=== PATIENT | female | born 1970 | race Caucasian/White ===

== ENCOUNTER 2020-02-28 17:40 | Outpatient (CLI) | payer BC, SELFPAY ==
--- NOTE | ~2020-02-28 | XR_ITS ---
EXAMINATION: XR chest 2V EXAM DATE: 02/28/2020 17:59 INDICATION: Cough. TECHNIQUE: Frontal and lateral projections of the chest obtained and reviewed. Comparison is made to prior examination from 03/13/2019. FINDINGS: Moderate hyperinflation. The lungs are clear. There are no pleural effusions. The cardio mediastinal silhouette is within normal limits. There is no pneumothorax suspected. The bones and s oft tissues are unremarkable. There are cholecystectomy clips. IMPRESSION: 1. No acute cardiopulmonary findings. 2. Hyperinflation. Reviewed, dictated and finalized at location A.
== END 2020-02-28 17:41 | disposition home or self-care (01) ==
LOC: ANHIMG 17:45
PROVIDERS: PCP Family Medicine; Visit Provider Family Medicine
DX: R05 Cough (principal); R91.8 Other nonspecific abnormal finding of lung field
CPT/HCPCS: 71046

== ENCOUNTER → 2021-01-18 13:11 | Outpatient (CLI) | payer BC, SELFPAY ==
--- NOTE | ~2021-01-18 | MM_ITS ---
EXAMINATION: MM screening mike BI w lucia HISTORY: Screening TECHNIQUE: Craniocaudal and mediolateral oblique 3-D tomosynthesis images were obtained and synthetic 2-D images were generated. CAD analysis was submitted and interpreted. COMPARISON: Comparison to multiple prior studies sequentially, with oldest reviewed study dated 03/15. BREAST PARENCHYMAL COMPOSITION: The breasts are heterogenously dense, which may obscure small masses FINDINGS: There is no evidence of suspicious mass, calcification, or architectural distortion to sugg est malignancy in either breast. There has been no suspicious interval change. IMPRESSION: 1. No mammographic evidence of malignancy. 2. Recommend routine screening mammography in one year. BI-RADS Category 1: Negative Reviewed, dictated and finalized at location A.
== END ==
PROVIDERS: PCP Family Medicine; Visit Provider Family Medicine
DX: Z12.31 Encounter for screening mammogram for malignant neoplasm of breast (principal)
CPT/HCPCS: 77063; 77067

== ENCOUNTER 2021-07-26 10:50 | Outpatient (CLI) | payer OTHER, SELFPAY ==
--- NOTE | ~2021-07-26 | US_ITS ---
EXAMINATION: US abdomen complete DATE: 07/26/2021 11:25 INDICATION: Abnormal levels of other serum enzymes. TECHNIQUE: Multiple grayscale and Doppler ultrasound images of the abdomen were obtained. COMPARISON: Ultrasound abdomen 03/15/2013 FINDINGS: The visualized portions of the head, body, and tail of the pancreas are normal. The liver i s normal without focal lesion. No liver surface nodularity. There is normal flow in main portal vein. The gallbladder is absent. The common duct is normal and measures 6 mm. The kidneys are normal in si ze. The spleen is normal in size. Abdominal aorta is normal in caliber. Inferior vena cava is normal. IMPRESSION: 1. No etiology for abnormal liver function tests. Reviewed, dictated and finalized at location A. UNTS RECEIVABLE ADMINISTRATOR
== END 2021-07-26 10:51 | disposition home or self-care (01) ==
PROVIDERS: PCP Family Medicine; Visit Provider Family Medicine
DX: R74.8 Abnormal levels of other serum enzymes (principal)
CPT/HCPCS: 76700

== ENCOUNTER 2021-08-21 14:27 | Outpatient (CLI) | payer OTHER, SELFPAY ==
--- NOTE | ~2021-08-21 | XR_ITS ---
XR hand RT min 3V DATE: 08/21/2021 14:42 INDICATION: Right hand joint pain TECHNIQUE: 3 views COMPARISON: None FINDINGS: There is joint space narrowing and spurring at the distal interphalangeal joint of the four th digit consistent with osteoarthritis. No fracture or dislocation, periosteal reaction or bone destruction or erosive change or chondrocalci nosis is detected. 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 ARIAL TRAINEE
== END 2021-08-21 14:28 | disposition home or self-care (01) ==
LOC: ANHIMG 14:32
PROVIDERS: PCP Family Medicine; Visit Provider Family Medicine
DX: R53.81 Other malaise (principal); M19.041 Primary osteoarthritis, right hand
CPT/HCPCS: 73130

== ENCOUNTER 2021-10-23 07:54 | Outpatient (CLI) | payer OTHER, SELFPAY ==
--- NOTE | ~2021-10-23 | CT_ITS ---
EXAMINATION:CT lung screening DATE: 10/23/2021 08:56 INDICATION: Personal history of nicotine dependence. Smoker who quit 10 years ago with 40 pack year h istory. TECHNIQUE: Computed tomography (CT) of the chest was performed without intravenous contrast. Automate d exposure control and iterative reconstruction technique were employed. The dose-length product (DLP ) was 61.84 mGy-cm. COMPARISON: None. FINDINGS: There is mild emphysema. There is minimal atelectasis bilaterally. There is a 3 mm nodule a t left lung apex. No pleural effusion. The heart size is normal. There are coronary artery calcificat ions. No pericardial effusion. There are changes of cholecystectomy. There is mild thoracic spondylos is. IMPRESSION: 1. Lung-RADS category 2: Benign appearance or behavior. Continue annual screening with noncontrast lo w-dose chest CT in 12 months. Reviewed, dictated and finalized at location A. IMPRESSION: 1. Lung-RADS category 2: Benign appearance or behavior. Continue annual screeni ng with noncontrast low-dose chest CT in 12 months.
--- NOTE | 2021-10-23 12:39 | WPDPFTINT ---
PFT Procedure Performed PFT Procedure Performed Spirometry with Pre/Post Bronchodilator Plethysmography (Lung Vol) Diffusing Cap (DLCO) Flow Vol Loop PFT Interpretation This is a pulmonary function test with pre and post-bronchodilator spirometry, plethysmography and diffusing capacity. The test was performed and results interpreted in accordance with the 2019 and 2005 ATS/ERS Task Force guidelines respectively using the Global Lung Function Initiative-2012 reference equations. Patient demonstrated good effort and cooperation. Reproducibility criteria were met. The quality of the pre bronchodilator spirometry maneuver was Grade A and post bronchodilator spirometry maneuver was Grade A. Findings: Spirometry: There is decreased maximal expiratory airflow at low lung volumes with a mildly concave expiratory flow tracing. The contour the inspiratory flow tracing is normal. The pre bronchodilator FVC is 2.70 L, 88% predicted. The pre bronchodilator FEV1 is 1.90 L, 77% predicted. The FEV1: FVC ratio 71%. The post bronchodilator FVC is 2.66 L, representing 1% decrease. The post bronchodilator FEV1 is 1.98 L, representing a 4% increase. The post bronchodilator FEV1: FVC ratio 74%. Plethysmography: Total lung capacity is 4.36 L, 95% predicted. The functional residual capacity is 2.69 L, 105% predicted. The residual volume is 1.66 L, 99% predicted. Diffusing capacity: The diffusing capacity unadjusted for hemoglobin and carboxyhemoglobin is 14.7, 69% predicted. The diffusing capacity adjusted for alveolar volume is 4.45, 95% predicted. Impression: There is a mild obstructive abnormality with a normal FEV1 and without significant improvement after inhaling a single dose of albuterol. The lung volumes are normal. The diffusing capacity unadjusted for hemoglobin and carboxyhemoglobin is mildly decreased and normalizes when adjusted for alveolar volume. There are no prior studies for comparison
== END 2021-10-23 07:55 | disposition home or self-care (01) ==
LOC: ANHPFT 07:55
PROVIDERS: PCP Family Medicine; Visit Provider Internal Medicine Pulmonary Disease
DX: Z12.2 Encounter for screening for malignant neoplasm of respiratory organs (principal); Z87.891 Personal history of nicotine dependence; R06.02 Shortness of breath
CPT/HCPCS: 71271; 94060; 94726; 94729

== ENCOUNTER 2021-11-15 08:20 | Outpatient (CLI) | payer OTHER, SELFPAY ==
[2021-11-15 09:10] LABS: Prothrombin Time 12.5 Seconds (11.1-14.7)
[2021-11-15 09:11] LABS: Partial Thromboplastin Time 32.3 SECONDS (22.3-36.8)
== END 2021-11-15 08:21 | disposition home or self-care (01) ==
LOC: ANHSURGERY 08:24
PROVIDERS: Anesthesiology; PCP Family Medicine; Visit Provider Urology
DX: R32 Unspecified urinary incontinence (principal); B19.20 Unspecified viral hepatitis C without hepatic coma; Z01.818 Encounter for other preprocedural examination
CPT/HCPCS: 36415; 85610; 85730; 87077; 87086; 87088

== ENCOUNTER 2021-11-22 00:58 | Day surgery (SDC) | payer OTHER, SELFPAY ==
[2021-11-11 15:10] VITALS: BMI 24.5
--- NOTE | 2021-11-11 15:40 | PC.NURSE ---
Report to the Outpatient Waiting Room, entrance under the green pavilion located off [facility], at time 7:00 AM on date 11/22/21 . OR Time: __9:00AM . IF YOUR SURGERY TIME IS ADJUSTED, WE WILL CONTACT YOU ON THURSDAY AFTERNOON REGARDING ANY TIME CHANGES!!! - You and your visitor will be asked a series of questions to screen for COVID 19 for your protection. - A mask is required within the hospital. Preoperative COVID Testing Requirements: No COVID Test needed Patients may have clear liquids (water, carbonated beverages, clear teas, apple juice) until 3 hours prior to surgery with a maximum of 20 ounces. YOU MAY HAVE CLEAR LIQUIDS UNTIL 6:00 AM ON THE MORNING OF SURGERY - No food from midnight until time of surgery Take the following medications with a SIP of water the morning of surgery: __SOFOSBUVIR; INHALER NEEDED Medications to discontinue per physician JOSUE--PLEASE CALL DR. VICENTE'S OFFICE REGARDING WHEN TO STOP BEFORE SURGERY Date to take last dose Please no make-up, nail swedish, hairspray, perfume, deodorant, or body powder the day of surgery. No jewelry (including any body piercings) or valuables the day of surgery, leave them at home. Please take a shower or bath the night before, or the morning of, surgery with an antibacterial soap. Wear comfortable, loose fitting clothing. - Jewelry must be removed prior to entering the operating room. Rings and piercings that are not removed may be cut off. - The hospital will not accept responsibility for valuables. - Please leave all valuables, including medications, at home the day of surgery. If you are going home after surgery, a licensed local flatbed driver must drive you home. - NO public transportation without another adult. - We recommend that an adult stay with you for 24 hours following discharge. - We also recommend that you do not drive, make important decision, drink alcoholic beverages, or take any drugs that were not prescribed by your health care provider for at least 24 hours after your discharge time. For Pediatric surgeries, we recommend two adults accompany the child home (only one inside the building at this time). One visitor will be allowed to accompany the patient into the hospital. Patients visitor will be instructed to remain with patient at all times or leave the building. We will allow the visitor to come back to the postoperative area when patient is ready. Follow any additional instructions given to you from your surgeon. Telephone instructions given to __TERRI and asked if any additional questions and then verbalized understanding. Patient advised to call surgeon office or pre surgery nurse liaison [phone] if any additional questions.
--- NOTE | 2021-11-17 20:37 | PM.IMHP ---
H&P: HPI History of Present Illness Date/Time: 11/17/21 20:37 51 yo with ANJEL Chief Complaint: ANJEL Review of Systems Review of Systems: All systems reviewed & are unremarkable except as noted in HPI and below PMFSH Past Medical History Medical History COPD (chronic obstructive pulmonary disease) Seasonal allergic rhinitis Tobacco use Surgical History Surgical History H/O tubal ligation History of cholecystectomy Family History Family History Sibling Family history of malignant neoplasm of breast in first degree relative, Onset Age: 47 Family history of elevated blood lipids Mother Family history of pancreatic disease Family history of lung cancer, Onset Age: 70 Other Family history of malignant neoplasm of breast Social History Social History Social History: Years smoked: 20 Smoking status: Former smoker Tobacco type: e-cigarettes/vaping Second hand tobacco smoke exposure: Yes Smoking end date: 07/20/10 Additional smoking assessment comments: Pt quit vaping Alcohol intake: current Drinks per week: 4 Substance use: former Substance use type: marijuana Other substance usage details: STOPPED CIGARETTES IN 2009 CURRENTLY USES E CIGS Last use: 2009 Gender identity (if verbalized by the patient): Female Sexual Orientation (if Verbalized by the Patient): Straight or Heterosexual Spiritual care concerns: No Meds Home Medications and Allergies Home Medications Medication Instructions Recorded Confirmed Type albuterol sulfate 90 mcg/actuation 1 inhalation INHALATION Q4-6H PRN 04/03/20 11/11/21 Rx breath activated powder inhaler #1 each sofosbuvir 400 mg-velpatasvir 100 1 tablet PO DAILY 84 Days #84 10/21/21 11/11/21 Rx mg tablet tablet celecoxib 200 mg PO DAILY 11/11/21 11/11/21 History Allergies Allergy/AdvReac Type Severity Reaction Status Date / Time meperidine Allergy Intermediate Itching Verified 10/01/21 12:51 propoxyphene Allergy Intermediate Itching Verified 11/11/21 15:39 MEPERIDINE HCL Allergy Intermediate Hives Uncoded 11/11/21 15:39 PROPOXYPHENE NAPSYLATE Allergy Intermediate Hives Uncoded 11/11/21 15:39 Exam Narrative: NAD normal brething + urethral mobility Assessment and Plan Assessment and plan (1) ANJEL (stress urinary incontinence, female): Code(s): N39.3 - Stress incontinence (female) (male) Status: Acute Assessment and Plan: urethral sling
--- NOTE | 2021-11-21 12:55 | WPDANESEPPF ---
Anes - Initial Pre Proc Eval Procedure: Operation Date: 11/22/21 09:00 Proposed Procedures p Urethral Sling - Thompson Vinson MD Date/Time: 11/21/21 12:55 Surgeon: Thompson Vinson MD Pre Op Diagnosis: stress incontinence Patient Data Age: 51 Gender: F Height: 1.55 m Weight: 59 kg Allergies Allergy/AdvReac Type Severity Reaction Status Date / Time meperidine Allergy Intermediate Itching Verified 11/22/21 07:13 propoxyphene Allergy Intermediate Itching Verified 11/22/21 07:13 MEPERIDINE HCL Allergy Intermediate Hives Uncoded 11/22/21 07:13 PROPOXYPHENE NAPSYLATE Allergy Intermediate Hives Uncoded 11/22/21 07:13 Home Medications Medication Instructions Recorded Confirmed Type albuterol sulfate 90 mcg/actuation 1 inhalation INHALATION Q4-6H PRN 04/03/20 11/22/21 Rx breath activated powder inhaler #1 each celecoxib 200 mg PO DAILY 11/11/21 11/22/21 History sofosbuvir 400 mg-velpatasvir 100 1 tablet PO DAILY 84 Days #84 11/20/21 Rx mg tablet tablet Patient hx anesthesia problems: post op nausea/vomiting Family hx anesthesia problems: none Results Review: All pre-operative results and documents have been reviewed as part of the pre-operative evaluation. [facility] Past Medical History Medical History COPD (chronic obstructive pulmonary disease) Hepatitis C PONV (postoperative nausea and vomiting) Seasonal allergic rhinitis Tobacco use Surgical History Surgical History H/O tubal ligation History of cholecystectomy Family History Family History Sibling Family history of malignant neoplasm of breast in first degree relative, Onset Age: 47 Family history of elevated blood lipids Mother Family history of pancreatic disease Family history of lung cancer, Onset Age: 70 Other Family history of malignant neoplasm of breast Social History Social History Social History: Years smoked: 20 Smoking status: Former smoker Tobacco type: e-cigarettes/vaping Second hand tobacco smoke exposure: Yes Smoking end date: 07/20/10 Additional smoking assessment comments: Pt quit vaping Alcohol intake: current Drinks per week: 4 Substance use: former Substance use type: marijuana Other substance usage details: STOPPED CIGARETTES IN 2009 CURRENTLY USES E CIGS Last use: 2009 Living arrangements: with family Gender identity (if verbalized by the patient): Female Sexual Orientation (if Verbalized by the Patient): Straight or Heterosexual Spiritual care concerns: No Anes - Eval Final PreProcedure Day of Procedure 11/21/21 12:55 Patient weight: normal Heart: regular rate and rhythm Lungs: clear to auscultation and normal air movement Airway: Mallampati scale class II Neurological: alert and oriented Last oral intake: >/= 8 hours ASA classification: III Emergent: no Anesthetic plan: proceed Anesthesia type and monitoring: general GIVS and standard monitoring Results Review: All pre-operative results and documents have been reviewed as part of the pre-operative evaluation. Informed Consent: The patient's anesthetic plan and its attendant risks and benefits were discussed with the patient/family/POA. Questions were solicited and answers provided to the satisfaction of the patient/family/POA.
--- NOTE | 2021-11-22 07:14 | WPDHPUPDATE1 ---
History and Physical Update Update Date/Time: 11/22/21 07:14 History and Physical has been reviewed, including an updated exam of the patient. There are NO changes in the patient's condition. Risks, benefits, and alternatives have been discussed and questions answered. Patient agrees to proceed with procedure.
[2021-11-22 07:26] VITALS: BP 106/81; PULSE 70; RESP 20; TEMP 36.7; O2SAT 100; BMI 25.0
[2021-11-22] MEDS: LACTATED RINGERS 1,000 ML 30 ML IV CONT (07:38)
[2021-11-22] MEDS: LIDO 1%/EPINEPHRINE/PF 1:200,000 30 ML VIAL 20 ML XX (08:44)
[2021-11-22] MEDS: ceFAZolin 2 GM/D5W 50 ML 2 GM/50 ML BAG IVPB (08:46)
[2021-11-22] MEDS: KETOROLAC 30 MG/ML VIAL (*BKC) IV PUSH (08:54)
--- NOTE | 2021-11-22 09:15 | W.PM.PROC2 ---
Procedure Note - Detailed Date of Procedure 11/22/21 Pre-op Diagnosis stress incontinence Post-op Diagnosis Same Procedure Performed mid urethral sling cystoscopy Surgeon Thompson Vinson MD Indications This is a female with confirm stress urinary incontinence. She desires surgical correction. She understands the risks of bleeding, infection, injury to the urinary tract, vaginal mesh extrusion, urinary tract mesh erosion, obstructive voiding requiring a secondary procedure, hip and leg pain, dyspareunia, inability to improve overactive bladder symptoms. She agrees to proceed. Description of Procedure She was correctly identified. Informed consent obtained. She was brought the operating room. She was given appropriate anesthesia. She was given appropriate perioperative antibiotics. A time-out performed. I marked out the site of the inner thigh incisions. I anesthetized the skin and made those incisions. I anesthetized the anterior vaginal wall over the mid urethra. I made a 1 cm incision. I dissected out laterally taking great care not to injure the refilled vaginal wall. I passed the helical trocars. First on the left. Then on the right. I did this from the thigh incision towards the vaginal incision. The sling was connected to the trocars and brought out through the thigh incision. I tensioned the sling appropriately. I cut and the plastic sheaths. I then closed the incision with 2 0 Vicryl. On cystoscopy there is no tumors or surgical artifact. There was no surgical artifact in the urethra. I cut the excess sling material. Close incisions with glue. She was awakened and transferred to the PACU in stable condition. Implants Urethral sling Drains No Packing No Pathology None sent Complications No immediate complications Condition Stable Disposition PACU
[2021-11-22 09:18] VITALS: BP 98/47; PULSE 78; RESP 16; O2SAT 96
[2021-11-22 09:48] VITALS: BP 123/55; PULSE 73; RESP 16
--- NOTE | 2021-11-22 19:41 | SUR.PHASEII ---
delay for discharge due to pain and muscle spasm control. After pain medications pt said her pain was tolerable and she was good to go home.
== END 2021-11-22 10:15 | disposition home or self-care (01) ==
PROVIDERS: PCP Family Medicine; Visit Provider Urology
PROC: (CPT 57288; principal; 2021-11-22 09:00)
DX: N39.3 Stress incontinence (female) (male) (principal); Z79.51 Long term (current) use of inhaled steroids; J44.9 Chronic obstructive pulmonary disease, unspecified; B19.20 Unspecified viral hepatitis C without hepatic coma; Z87.891 Personal history of nicotine dependence; F12.90 Cannabis use, unspecified, uncomplicated
CPT/HCPCS: 57288; 36415; 85610; 85730; 87077; 87086; 87088; A9270; C1771; J0690; J1100; J1885; J2250; J2405; J2704; J3010; J7120

== ENCOUNTER 2022-02-03 15:47 | Outpatient (CLI) | payer OTHER, SELFPAY ==
[2022-02-03 16:02] LABS: Hematocrit 40.7 % (37.0-47.0); Hemoglobin 14.1 g/dL (12.0-15.0); Mean Corpuscular HGB Conc 34.6 g/dl (32-36); Mean Corpuscular Hemoglobin 29.3 pg (26-34); Mean Corpuscular Volume 84.4 fl (80-100); Mean Platelet Volume 10.4 fl (7.4-10.4); Platelet Count Result 191 k/mm3 (150-375); Red Blood Count 4.82 M/mm3 (4.2-5.4); Red Cell Distribution Width 11.6 % (11.5-14.5); White Blood Count 8.2 K/mm3 (4.5-10.0)
[2022-02-03 16:13] LABS: Alanine Aminotransferase 15 U/L (6-35); Albumin Level 4.4 g/dL (3.5-5.1); Alkaline Phosphatase 64 U/L (38-126); Anion Gap 6 mmol/L (8-16); Aspartate Amino Transferase 26 U/L (14-36); Bilirubin,Total 0.6 mg/dL (0.2-1.3); Blood Urea Nitrogen 12 mg/dL (7-17); Calcium 9.1 mg/dL (8.4-10.2); Carbon Dioxide 25 mmol/L (22-30); Chloride 105 mmol/L (98-107); Estimated Glomerular Filt Rate > 60; Glucose 97 mg/dL (65-110); Potassium 3.9 mmol/L (3.4-5.0); Sodium 136 mmol/L (137-145)
[2022-02-06 16:22] LABS: Hepatitis C RNA, Quant PCR <15 IU/mL
== END 2022-02-03 15:48 | disposition home or self-care (01) ==
LOC: ANHLAB 15:50
PROVIDERS: PCP Family Medicine; Visit Provider Nurse Practitioner Family
DX: B19.20 Unspecified viral hepatitis C without hepatic coma (principal)
CPT/HCPCS: 36415; 80053; 85027; 87522

== ENCOUNTER 2022-04-11 08:38 | Outpatient (CLI) | payer OTHER, SELFPAY ==
--- NOTE | ~2022-04-11 | XR_ITS ---
XR lumbar spine 2-3V DATE: 04/11/2022 09:02 INDICATION: Low back pain after picking up a heavy object TECHNIQUE: AP, lateral, coned lateral lumbosacral views COMPARISON: 07/17/2019 lumbar spine FINDINGS: Normal alignment of the lumbar spine. No fracture or bone destruction or spondylolisthesis. The lumbar pedicles are intact. There is mild degenerative spurring of the lower thoracic and lumbar spine. Lumbar and lumbosacral in terspaces appear well preserved. The sacroiliac joints are intact. Status post cholecystectomy. IMPRESSION: Mild degenerative spurring of the lower thoracic and lumbar spine; no evidence of fractur e Status post cholecystectomy Reviewed, dictated and finalized at location D. IMPRESSION: Mild degenerative spurring of the lower thoracic and lumbar spine; no evidence of fracture Status post cholecystectomy
== END 2022-04-11 08:39 | disposition home or self-care (01) ==
PROVIDERS: PCP Family Medicine; Visit Provider Physician Assistant
DX: M54.50 Low back pain, unspecified (principal); M46.04 Spinal enthesopathy, thoracic region; M46.06 Spinal enthesopathy, lumbar region; Z90.49 Acquired absence of other specified parts of digestive tract
CPT/HCPCS: 72100

== ENCOUNTER 2022-10-24 09:30 | Outpatient (CLI) | payer BC, SELFPAY ==
--- NOTE | ~2022-10-24 | CT_ITS ---
EXAMINATION: CT lung screening DATE: 10/24/2022 09:59 INDICATION: Personal history of nicotine dependence, current smoker with 20 pack year history TECHNIQUE: Computed tomography (CT) of the chest was performed without intravenous contrast. The dose -length product (DLP) was 68.18 mGy-cm. Automated exposure control and iterative reconstruction techn Telestreamue were employed. COMPARISON: 10/23/2021 FINDINGS: There is mild emphysema. The previously described nodule of the left lung apex is no longer evident. The lungs are free of acute opacities. No pleural effusion or pneumothorax. No pathological ly enlarged thoracic lymph nodes are identified. The heart size is normal. There is calcified coronar y artery atherosclerosis. The gallbladder is surgically absent. There is mild enlargement of the comm on bile duct and central intrahepatic ducts which is likely due to post cholecystectomy state. There is mild thoracic spondylosis. IMPRESSION: 1. Lung-RADS category 1: Negative. Continue annual screening with noncontrast low-dose chest CT in 12 months. Reviewed, dictated and finalized at location B. IMPRESSION: 1. Lung-RADS category 1: Negative. Continue annual screening with noncontrast l ow-dose chest CT in 12 months.
== END 2022-10-24 09:31 | disposition home or self-care (01) ==
PROVIDERS: PCP Family Medicine; Visit Provider Physician Assistant
DX: Z12.2 Encounter for screening for malignant neoplasm of respiratory organs (principal); F17.210 Nicotine dependence, cigarettes, uncomplicated
CPT/HCPCS: 71271

== ENCOUNTER 2023-07-28 08:39 | Outpatient (CLI) | payer BC, SELFPAY ==
--- NOTE | 2023-07-28 09:45 | NEURO_ITS ---
Impression: # Non-diabetic complains of numbness of hands. # Bilateral Carpal Tunnel Syndrome, left more than right. # Needle/EMG exam mildly neurogenic in left APB. Nerve Conduction Studies Anti Sensory Summary Table Stim Site NR Peak (ms) P-T Amp (?V) Site1 Site2 Delta-P (ms) Dist (cm) Vladimir (m/s) Left Median Anti Sensory (2-3nd Digit) Wrist 4.6 43.6 Wrist 2-3nd Digit 4.6 14.0 30 Wrist 4.4 36.5 Wrist 2-3nd Digit 4.6 14.0 30 Right Median Anti Sensory (2-3nd Digit) Wrist 3.5 34.9 Wrist 2-3nd Digit 3.5 14.0 40 Wrist 4.6 68.9 Wrist 2-3nd Digit 3.5 14.0 40 Left Radial Anti Sensory (Base 1st Digit) Wrist 2.0 12.2 Wrist Base 1st Digit 2.0 0.0 Right Radial Anti Sensory (Base 1st Digit) Wrist 2.4 23.4 Wrist Base 1st Digit 2.4 0.0 Left Ulnar Anti Sensory (5th Digit) Wrist 2.3 46.8 Wrist 5th Digit 2.3 14.0 61 Right Ulnar Anti Sensory (5th Digit) Wrist 2.3 66.1 Wrist 5th Digit 2.3 14.0 61 Motor Summary Table Stim Site NR Onset (ms) O-P Amp (mV) Site1 Site2 Delta-0 (ms) Dist (cm) Vladimir (m/s) Left Median Motor (Abd Poll Brev) Wrist 4.0 4.8 Elbow Wrist 4.4 26.0 59 Elbow 8.4 3.9 Right Median Motor (Abd Poll Brev) Wrist 3.4 4.0 Elbow Wrist 4.5 25.0 56 Elbow 7.9 3.0 Left Ulnar Motor (Abd Dig Minimi) Wrist 2.4 7.4 A Elbow Wrist 4.5 26.0 58 A Elbow 6.9 6.7 Right Ulnar Motor (Abd Dig Minimi) Wrist 2.2 7.6 A Elbow Wrist 4.4 26.0 59 A Elbow 6.6 6.7 F Wave Studies NR F-Lat (ms) L-R F-Lat (ms) Left Median (Mrkrs) (Abd Poll Brev) 23.80 1.17 Right Median (Mrkrs) (Abd Poll Brev) 24.97 1.17 Left Ulnar (Mrkrs) (Abd Dig Min) 23.54 0.00 Right Ulnar (Mrkrs) (Abd Dig Min) 23.54 0.00 EMG Side Muscle Nerve Root Ins Act Fibs Amp Dur Recrt Comment Right 1stDorInt Ulnar C8-T1 Nml Nml Nml Nml Nml Right Ext Indicis Radial (Post Int) C7-8 Nml Nml Nml Nml Nml Right Ext Digitorum Radial (Post Int) C7-8 Nml Nml Nml Nml Nml Right BrachioRad Radial C5-6 Nml Nml Nml Nml Nml Right PronatorTeres Median C6-7 Nml Nml Nml Nml Nml Right Abd Poll Brev Median C8-T1 Nml Nml Nml Nml Nml Left 1stDorInt Ulnar C8-T1 Nml Nml Nml Nml Nml Left Ext Indicis Radial (Post Int) C7-8 Nml Nml Nml Nml Nml Left Ext Digitorum Radial (Post Int) C7-8 Nml Nml Nml Nml Nml Left BrachioRad Radial C5-6 Nml Nml Nml Nml Nml Left PronatorTeres Median C6-7 Nml Nml Nml Nml Nml Left Abd Poll Brev Median C8-T1 Nml Nml Nml >12ms Reduced MTDD
== END 2023-07-28 08:40 | disposition home or self-care (01) ==
LOC: ANHNEURO 08:44
PROVIDERS: PCP Family Medicine; Visit Provider Physician Assistant
DX: G56.03 Carpal tunnel syndrome, bilateral upper limbs (principal)
CPT/HCPCS: 95886; 95911

== ENCOUNTER 2023-09-10 00:53 | Day surgery (SDC) | payer BC, SELFPAY ==
[2023-09-02 12:14] VITALS: BMI 21.5
--- NOTE | 2023-09-02 12:20 | PC.NURSE ---
Report to the Outpatient Waiting Room, entrance under the green pavilion located off [facility], at time 0830 on date 09/10/23. Planned Procedure Time: 1030. Time changes happen often and if your time is changed the preop area will call you the afternoon before. - You and your visitor will be asked to self-screen and do not enter if you have any COVID symptoms. - A mask is optional within the hospital at this time. Patients may have clear liquids (water, carbonated beverages, clear teas, apple juice) until 8 hours prior to surgery with a maximum of 20 ounces. - No food from midnight until time of surgery Take the following medications with a SIP of water the morning of surgery: NONE DO NOT STOP ANY OF YOUR OTHER PRESCRIPTION MEDICATIONS PRIOR TO SURGERY ?EXCEPT THE FOLLOWING Medications to discontinue per physician: CELEBREX Date to take last dose: PER DR. WEEKS Please no make-up, nail luxembourger, hairspray, perfume, deodorant, or body powder the day of surgery. No jewelry (including any body piercings) or valuables the day of surgery, leave them at home. Please take a shower or bath the night before, or the morning of, surgery with an antibacterial soap. Wear comfortable, loose fitting clothing. - Jewelry must be removed prior to entering the operating room. Rings and piercings that are not removed may be cut off. - The hospital will not accept responsibility for valuables. - Please leave all valuables, including medications, at home the day of surgery. If you are going home after surgery, a licensed escort vehicle driver must drive you home. - NO public transportation without another adult if you receive anesthesia. - We recommend that an adult stay with you for 24 hours following discharge. - We also recommend that you do not drive, make important decision, drink alcoholic beverages, or take any drugs that were not prescribed by your health care provider for at least 24 hours after your discharge time. Follow any additional instructions given to you from your surgeon. If you or anyone in your household have experienced Covid symptoms in the past week, please notify your surgeon or the nurse liaison at the phone number below for possible testing. Telephone instructions given to PT - CHRIS MCFARLAND and asked if any additional questions and then verbalized understanding. Patient advised to call surgeon office or pre surgery nurse liaison [phone] if any additional questions.
--- NOTE | 2023-09-10 07:10 | WPDHPUPDATE1 ---
History and Physical Update Update Date/Time: 09/10/23 07:10 Patient seen and examined in pre-operative holding area. No interval change in medical history or symptoms. Patient recalls previous discussion of benefits and alternatives to procedure. Continues to desire to proceed with right endoscopic possible open carpal tunnel release. Reviewed procedure, post-op expectations and risks including but not limited to bleeding, infection, injury to tendon/nerve/vessel, decreased hand function, stiffness, RSD, no change or worsening of symptoms. I discussed the possible use of assistants and their participation in the case. Patient stated understanding and signed the consent form wishing to proceed.
--- NOTE | 2023-09-10 07:10 | W.PM.PROC2 ---
Procedure Note - Detailed Date of Procedure 09/10/23 Pre-op Diagnosis right carpal tunnel syndrome Post-op Diagnosis Same Procedure Performed right ectr Surgeon Go Apodaca MD Anesthesia MAC Description of Procedure INFORMED CONSENT: The patient was seen and examined and marked in the pre-op area.? The patient signed the consent form. PROCEDURE IN DETAIL:The patient taken back to OR on the stretcher in supine position. Time out performed with anesthesia, surgeon and staff agreeing on patient's name site and surgery to be performed SCDs were placed on the lower extremities and inflated. A tourniquet was placed on {right} upper extremity and antibiotics given IV After anesthesia administered sedation I injected {5}cc 1%lido with epi and 0.5% marcaine plain at the operative site The?{right upper extremity}?was prepped and draped in sterile fashion the??{right upper extremity} was? exsanguinated with Esmarch bandage and tourniquet inflated to 250mmHg I made a transverse incision in the {right} volar distal wrist crease through skin and dermis with 15 blade scalpel.? Littler scissors spread down to antebrachial fascia. A small incision was made in antebrachial fascia allowing access to Carpal tunnel. I proceeded with sequential dilation staying in line with the ring finger and hugging the hook of the hamate.? I then used the synovial elevator to free any adhesions from the underside of the transverse carpal ligament. Next I was able to insert the Microaire endoscopic carpal tunnel device with direct visualization of the transverse fibers on the monitor and proceeded with complete segmental retrograde release of the ligament in its entirety.? I irrigated with normal saline and closed with 4-0 monocryl for dermis and subcuticular closure. A dressing of Dermabond, 4x4, zelda, and a volar splint was applied for patient safety, security, and comfort and secured with an sy bandage after the tourniquet was let down noting the hand was warm and well perfused. The patient was then awaken from anesthesia and transferred to the recovery room in stable condition.? Complications - none EBL- 0cc Disposition - home in stable conditions AM Billing Surgery - Charge Forward: Surgery Billing ([id number])
[2023-09-10 08:47] VITALS: BP 116/74; PULSE 72; RESP 20; TEMP 37.2; O2SAT 100
[2023-09-10] MEDS: LACTATED RINGERS 1,000 ML 30 ML IV CONT (09:00)
[2023-09-10] MEDS: LIDO 1%/EPINEPHRINE 1:100,000 50 ML VIAL INFILTRATE (09:31)
--- NOTE | 2023-09-10 09:35 | WPDANESEPPF ---
Anes - Initial Pre Proc Eval Procedure: Operation Date: 09/10/23 10:30 Proposed Procedures p Right Endoscopic Carpal Tunnel Release, Possible Open - Go Apodaca MD Date/Time: 09/10/23 09:35 Surgeon: Go Apodaca MD Pre Op Diagnosis: right carpal tunnel syndrome Patient Data Age: 53 Gender: F Height: 1.55 m Weight: 54 kg Last Vital Signs Temp 37.2 C 09/10/23 08:47 Pulse 72 09/10/23 08:47 Resp 20 09/10/23 08:47 BP 116/74 09/10/23 08:47 Pulse Ox 100 09/10/23 08:47 O2 Del Method Room Air 09/10/23 08:47 Allergies Allergy/AdvReac Type Severity Reaction Status Date / Time meperidine Allergy Intermediate Itching Verified 09/10/23 08:48 propoxyphene Allergy Intermediate Itching Verified 09/10/23 08:48 Home Medications Medication Instructions Recorded Confirmed Type celecoxib 200 mg capsule (Celebrex) 200 mg PO DAILY #90 caps 01/16/23 09/10/23 Rx tramadol 50 mg tablet 50 mg PO Q6H PRN pain #10 tabs 09/10/23 Rx Patient hx anesthesia problems: post op nausea/vomiting Family hx anesthesia problems: none Results Review: All pre-operative results and documents have been reviewed as part of the pre-operative evaluation. [facility] Past Medical History Medical History Bladder incontinence COPD (chronic obstructive pulmonary disease) Cough in adult COVID-19 long hauler Elevated liver enzymes Exertional dyspnea Hepatitis C Low back pain Malaise Pinched vertebral nerve PONV (postoperative nausea and vomiting) Rosacea Seasonal allergic rhinitis ANJEL (stress urinary incontinence, female) Tobacco use Surgical History Surgical History H/O tubal ligation History of cholecystectomy Family History Family History Sibling Family history of malignant neoplasm of breast in first degree relative, Onset Age: 47 Family history of elevated blood lipids Mother Family history of pancreatic disease Family history of lung cancer, Onset Age: 70 Other Family history of malignant neoplasm of breast Social History Social History Social History: Smoking packs per day: 1 Smoking cigarettes per day: 20.0 Years smoked: 30 Smoking pack-years: 30.00 Smoking status: Current every day smoker Tobacco type: cigarettes and e-cigarettes/vaping Second hand tobacco smoke exposure: Yes Smoking end date: 07/20/10 Additional smoking assessment comments: QUIT CIGARETTES APPROX 2011, NOW VAPING Alcohol intake: current Drinks per week: 2 Substance use: never Substance use type: does not use Other substance usage details: STOPPED CIGARETTES IN 2009 CURRENTLY USES E CIGS Last use: 2009 Living arrangements: with family Occupation/Education: occupation Gender identity (if verbalized by the patient): Female Sexual Orientation (if Verbalized by the Patient): Straight or Heterosexual Spiritual care concerns: No Anes - Eval Final PreProcedure Day of Procedure 09/10/23 09:35 Patient weight: normal Heart: regular rate and rhythm Lungs: decreased breath sounds Airway: Mallampati scale class II Neurological: alert and oriented Last oral intake: >/= 8 hours ASA classification: III Emergent: no Anesthetic plan: proceed Anesthesia type and monitoring: general GIVS and standard monitoring Results Review: All pre-operative results and documents have been reviewed as part of the pre-operative evaluation. Informed Consent: The patient's anesthetic plan and its attendant risks and benefits were discussed with the patient/family/POA. Questions were solicited and answers provided to the satisfaction of the patient/family/POA.
[2023-09-10] MEDS: ceFAZolin 2 GM/D5W 50 ML 2 GM/50 ML BAG IVPB (09:50)
[2023-09-10 10:07] VITALS: BP 97/56; PULSE 75; RESP 16; O2SAT 97
[2023-09-10 10:35] VITALS: BP 95/57; PULSE 63; RESP 16
[2023-09-10] MEDS: oxyCODONE HCL (*CRX) 5 MG TAB IR PO (10:35)
[2023-09-10 10:58] VITALS: BP 105/70; PULSE 62; RESP 16
== END 2023-09-10 11:02 | disposition home or self-care (01) ==
PROVIDERS: PCP Family Medicine; Visit Provider Plastic Surgery
PROC: 01N54ZZ Release Median Nerve, Percutaneous Endoscopic Approach (ICD-10-PCS; CPT 29848; principal; 2023-09-10 10:30)
DX: G56.01 Carpal tunnel syndrome, right upper limb (principal); Z87.891 Personal history of nicotine dependence; Z86.19 Personal history of other infectious and parasitic diseases
CPT/HCPCS: 29848; A9270; J0690; J2704; J3010; J7120

== ENCOUNTER 2023-10-29 00:13 | Day surgery (SDC) | payer BC, SELFPAY ==
[2023-10-20 12:43] VITALS: BMI 22.4
--- NOTE | 2023-10-20 12:43 | PC.NURSE ---
Report to the Outpatient Waiting Room, entrance under the green pavilion located off [facility], at time 1015 on date 10/29/23. Planned Procedure Time: 1215. Time changes happen often and if your time is changed the preop area will call you the afternoon before. - You and your visitor will be asked to self-screen and do not enter if you have any COVID symptoms. - A mask is optional within the hospital at this time. Patients may have clear liquids (water, carbonated beverages, clear teas, apple juice) until 8 hours prior to surgery with a maximum of 20 ounces. - No food from midnight until time of surgery Take the following medications with a SIP of water the morning of surgery: N/A DO NOT STOP ANY OF YOUR OTHER PRESCRIPTION MEDICATIONS PRIOR TO SURGERY ?EXCEPT THE FOLLOWING Medications to discontinue per physician: N/A Date to take last dose: N/A Please no make-up, nail german, hairspray, perfume, deodorant, or body powder the day of surgery. No jewelry (including any body piercings) or valuables the day of surgery, leave them at home. Please take a shower or bath the night before, or the morning of, surgery with an antibacterial soap. Wear comfortable, loose fitting clothing. - Jewelry must be removed prior to entering the operating room. Rings and piercings that are not removed may be cut off. - The hospital will not accept responsibility for valuables. - Please leave all valuables, including medications, at home the day of surgery. If you are going home after surgery, a licensed tram driver must drive you home. - NO public transportation without another adult if you receive anesthesia. - We recommend that an adult stay with you for 24 hours following discharge. - We also recommend that you do not drive, make important decision, drink alcoholic beverages, or take any drugs that were not prescribed by your health care provider for at least 24 hours after your discharge time. Follow any additional instructions given to you from your surgeon. If you or anyone in your household have experienced Covid symptoms in the past week, please notify your surgeon or the nurse liaison at the phone number below for possible testing. Telephone instructions given to PT - CHRIS and asked if any additional questions and then verbalized understanding. Patient advised to call surgeon office or pre surgery nurse liaison [phone] if any additional questions.
--- NOTE | 2023-10-20 12:48 | PC.NURSE ---
Pt states currently has GI/Flu-like symptoms that began 10/18. Symptoms include body aches, vomiting and diarrhea, and headache. Pt states will monitor symptoms and notify provider if symptoms not improved and/or tests positive for Covid prior to surgery.
--- NOTE | 2023-10-29 07:04 | PM.HPGS ---
History of Present Illness History of Present Illness Chief complaint: left carpal tunnel syndrome Narrative: Patient seen and examined in pre-operative holding area. No interval change in medical history or symptoms. Patient recalls previous discussion of benefits and alternatives to procedure. Continues to desire to proceed with left endoscopic possible open carpal tunnel release. Reviewed procedure, post-op expectations and risks including but not limited to bleeding, infection, injury to tendon/nerve/vessel, decreased hand function, stiffness, RSD, no change or worsening of symptoms. I discussed the possible use of assistants and their participation in the case. Patient stated understanding and signed the consent form wishing to proceed. Review of Systems Review of Systems: All systems reviewed & are unremarkable except as noted in HPI and below PMFSH Past Medical History Medical History Bladder incontinence COPD (chronic obstructive pulmonary disease) Cough in adult COVID-19 long hauler Elevated liver enzymes Exertional dyspnea Hepatitis C Low back pain Malaise Pinched vertebral nerve PONV (postoperative nausea and vomiting) Rosacea Seasonal allergic rhinitis ANJEL (stress urinary incontinence, female) Tobacco use Surgical History Surgical History H/O tubal ligation History of cholecystectomy Family History Family History Sibling Family history of malignant neoplasm of breast in first degree relative, Onset Age: 47 Family history of elevated blood lipids Mother Family history of pancreatic disease Family history of lung cancer, Onset Age: 70 Other Family history of malignant neoplasm of breast Social History Social History Social History: Smoking packs per day: 1 Smoking cigarettes per day: 20.0 Years smoked: 30 Smoking pack-years: 30.00 Smoking status: Current every day smoker Tobacco type: cigarettes and e-cigarettes/vaping Second hand tobacco smoke exposure: Yes Smoking end date: 07/20/10 Additional smoking assessment comments: QUIT CIGARETTES APPROX 2011, NOW VAPING Alcohol intake: current Drinks per week: 2 Substance use: never Substance use type: does not use Other substance usage details: STOPPED CIGARETTES IN 2009 CURRENTLY USES E CIGS Last use: 2009 Living arrangements: with family Occupation/Education: occupation Gender identity (if verbalized by the patient): Female Sexual Orientation (if Verbalized by the Patient): Straight or Heterosexual Spiritual care concerns: No Meds Home Medications and Allergies Home Medications Medication Instructions Recorded Confirmed Type No Home Medications 10/20/23 10/20/23 History Allergies Allergy/AdvReac Type Severity Reaction Status Date / Time meperidine Allergy Intermediate Itching Verified 10/29/23 10:14 propoxyphene Allergy Intermediate Itching Verified 10/29/23 10:14 Exam Narrative: unchanged Assessment and Plan Assessment and plan (1) Carpal tunnel syndrome: Qualifiers: Laterality: bilateral Qualified Code(s): G56.03 - Carpal tunnel syndrome, bilateral upper limbs Code(s): G56.00 - Carpal tunnel syndrome, unspecified upper limb Status: Acute Assessment and Plan: as above
--- NOTE | 2023-10-29 07:05 | W.PM.PROC2 ---
Procedure Note - Detailed Date of Procedure 10/29/23 Pre-op Diagnosis left carpal tunnel syndrome Post-op Diagnosis Same Procedure Performed left ectr Surgeon Go Apodaca MD Corn Cooker Simon Dixon PA-C Anesthesia MAC Description of Procedure INFORMED CONSENT: The patient was seen and examined and marked in the pre-op area.? The patient signed the consent form. PROCEDURE IN DETAIL:The patient taken back to OR on the stretcher in supine position. Time out performed with anesthesia, surgeon and staff agreeing on patient's name site and surgery to be performed SCDs were placed on the lower extremities and inflated. A tourniquet was placed on {left} upper extremity and antibiotics given IV After anesthesia administered sedation I injected {5}cc 1%lido with epi and 0.5% marcaine plain at the operative site The?{left upper extremity}?was prepped and draped in sterile fashion the??{left upper extremity} was? exsanguinated with Esmarch bandage and tourniquet inflated to 250mmHg I made a transverse incision in the {left} volar distal wrist crease through skin and dermis with 15 blade scalpel.? Littler scissors spread down to antebrachial fascia. A small incision was made in antebrachial fascia allowing access to Carpal tunnel. I proceeded with sequential dilation staying in line with the ring finger and hugging the hook of the hamate.? I then used the synovial elevator to free any adhesions from the underside of the transverse carpal ligament. Next I was able to insert the Microaire endoscopic carpal tunnel device with direct visualization of the transverse fibers on the monitor and proceeded with complete segmental retrograde release of the ligament in its entirety.? I irrigated with normal saline and closed with 4-0 monocryl for dermis and subcuticular closure. A dressing of Dermabond, 4x4, zelda, and a volar splint was applied for patient safety, security, and comfort and secured with an sy bandage after the tourniquet was let down noting the hand was warm and well perfused. The patient was then awaken from anesthesia and transferred to the recovery room in stable condition.? Complications - none EBL- 0cc Disposition - home in stable conditions Simon Dixon PA-C was essential for positioninig, retraction, closure and dressing placement [facility] Billing Surgery - Charge Forward: Surgery Billing ([id number] for simon)
[2023-10-29 10:19] VITALS: BP 129/68; PULSE 69; RESP 16; TEMP 36.6; O2SAT 100
[2023-10-29] MEDS: LACTATED RINGERS 1,000 ML 30 ML IV CONT (10:37)
--- NOTE | 2023-10-29 11:44 | WPDANESEPPF ---
Anes - Initial Pre Proc Eval Procedure: Operation Date: 10/29/23 12:15 Proposed Procedures p Left Endoscopic Carpal Tunnel Release, Possible Open - Go Apodaca MD Date/Time: 10/29/23 11:44 Surgeon: Go Apodaca MD Pre Op Diagnosis: left carpal tunnel syndrome Patient Data Age: 53 Gender: F Height: 1.55 m Weight: 53.2 kg Last Vital Signs Temp 98 F 10/29/23 10:19 Pulse 69 10/29/23 10:19 Resp 16 10/29/23 10:19 BP 129/68 10/29/23 10:19 Pulse Ox 100 10/29/23 10:19 O2 Del Method Room Air 10/29/23 10:19 Allergies Allergy/AdvReac Type Severity Reaction Status Date / Time meperidine Allergy Intermediate Itching Verified 10/29/23 10:14 propoxyphene Allergy Intermediate Itching Verified 10/29/23 10:14 Home Medications Medication Instructions Recorded Confirmed Type tramadol 50 mg tablet 50 mg PO Q6H PRN pain #8 tabs 10/29/23 Rx Patient hx anesthesia problems: none Family hx anesthesia problems: none Results Review: All pre-operative results and documents have been reviewed as part of the pre-operative evaluation. PMFSH Past Medical History Medical History Bladder incontinence COPD (chronic obstructive pulmonary disease) Cough in adult COVID-19 long hauler Elevated liver enzymes Exertional dyspnea Hepatitis C Low back pain Malaise Pinched vertebral nerve PONV (postoperative nausea and vomiting) Rosacea Seasonal allergic rhinitis ANJEL (stress urinary incontinence, female) Tobacco use Surgical History Surgical History H/O tubal ligation History of cholecystectomy Family History Family History Sibling Family history of malignant neoplasm of breast in first degree relative, Onset Age: 47 Family history of elevated blood lipids Mother Family history of pancreatic disease Family history of lung cancer, Onset Age: 70 Other Family history of malignant neoplasm of breast Social History Social History Social History: Smoking packs per day: 1 Smoking cigarettes per day: 20.0 Years smoked: 30 Smoking pack-years: 30.00 Smoking status: Current every day smoker Tobacco type: cigarettes and e-cigarettes/vaping Second hand tobacco smoke exposure: Yes Smoking end date: 07/20/10 Additional smoking assessment comments: QUIT CIGARETTES APPROX 2011, NOW VAPING Alcohol intake: current Drinks per week: 2 Substance use: never Substance use type: does not use Other substance usage details: STOPPED CIGARETTES IN 2009 CURRENTLY USES E CIGS Last use: 2009 Living arrangements: with family Occupation/Education: occupation Gender identity (if verbalized by the patient): Female Sexual Orientation (if Verbalized by the Patient): Straight or Heterosexual Spiritual care concerns: No Anes - Eval Final PreProcedure Day of Procedure 10/29/23 11:44 Patient weight: normal Heart: regular rate and rhythm Lungs: clear to auscultation Airway: Mallampati scale class II and special considerations (Upper and lower dentures glued in this am. ) Neurological: alert and oriented Last oral intake: >/= 8 hours ASA classification: III Emergent: no Anesthetic plan: proceed Anesthesia type and monitoring: general GIVS and standard monitoring Results Review: All pre-operative results and documents have been reviewed as part of the pre-operative evaluation. Informed Consent: The patient's anesthetic plan and its attendant risks and benefits were discussed with the patient/family/POA. Questions were solicited and answers provided to the satisfaction of the patient/family/POA.
[2023-10-29] MEDS: ceFAZolin 2 GM/D5W 50 ML 2 GM/50 ML BAG IVPB (12:05)
[2023-10-29] MEDS: LIDO 1%/EPINEPHRINE 1:100,000 50 ML VIAL INFILTRATE (12:12)
[2023-10-29] MEDS: BUPivacaine HCL 0.5% 10 ML AMP 2 ML INFILTRATE (12:14)
[2023-10-29 12:27] VITALS: BP 98/35; PULSE 71; RESP 16; O2SAT 96
[2023-10-29 13:00] VITALS: BP 93/50; PULSE 67; RESP 16
[2023-10-29 13:30] VITALS: BP 123/61; PULSE 69; RESP 16
== END 2023-10-29 13:45 | disposition home or self-care (01) ==
PROVIDERS: PCP Family Medicine; Visit Provider Plastic Surgery
PROC: 01N54ZZ Release Median Nerve, Percutaneous Endoscopic Approach (ICD-10-PCS; CPT 29848; principal; 2023-10-29 12:15)
DX: G56.02 Carpal tunnel syndrome, left upper limb (principal); J44.9 Chronic obstructive pulmonary disease, unspecified; J30.2 Other seasonal allergic rhinitis; N39.3 Stress incontinence (female) (male); N32.81 Overactive bladder; F17.210 Nicotine dependence, cigarettes, uncomplicated; Z79.891 Long term (current) use of opiate analgesic; Z90.49 Acquired absence of other specified parts of digestive tract; Z80.3 Family history of malignant neoplasm of breast; Z80.1 Family history of malignant neoplasm of trachea, bronchus and lung
CPT/HCPCS: 29848; J0690; J2250; J2704; J3010; J7120